=== PATIENT | female | born 1945 | race Caucasian/White ===

== ENCOUNTER → 2017-09-25 08:38 | Outpatient (CLI) | payer MEDICARE, SELFPAY ==
--- NOTE | 2017-09-25 09:15 | MR_ITS ---
MR hip RT wo con Lost dictation redictated* Ordering Physician: Nicolette Mercado MD Patient Age: 72 years: Female HISTORY: ITS.REASON: PAIN IN RIGHT HIP Right hip pain. Right groin pain radiates right flank pain for one month. TECHNIQUE: Multiplanar multisequence imaging 1.5 Jaye MR COMPARISON :Right hip 11/06/2013 and lumbar spine series October 2013 FINDINGS There are significant arthritic changes at the right hip.. Joint Space narrowing and prominent hypertrophic lipping about the margins of acetabulum as well as at the base of the femoral head.. The coronal images nicely demonstrate a prominent nearly 9 mm marginal I hypertrophic spurring extending inferiorly from base of right femoral head. Coronal image 12 and sagittal image 16. However on the sagittal However is we continue more laterally on the sagittal images 13-12 there is additional area focal spur formation measuring up to 9 mm AP X a towards anterior capsule. This is near the base the femoral neck. Was not evident on plain film from 2013. This appears to impinge upon the anterior capsule in this region. I suggest follow-up plain films right hip to correlate to include AP, frog-leg and crosstable lateral view in attempt to characterize the spurring on plain film. Also likely a CT may be of benefit to better evaluate these osseous elements and progressive marginal osteophytes. . There is actually an area of osseous protuberance at the inferior femoral neck also seen on sagittal image 15 Lobe posteriorly there are some generous marginal osteophytes but these appear typical echogenicity generous hypertrophic lipping at the margin of acetabulum. The anterior acetabular labrum as suspected degenerated and diminutive. There is a moderate joint effusion most evident along the inferior aspect of the right hip and subcapital region. It is difficult to exclude a small loose body within surrounded by joint fluid, at inferior aspect of the joint on coronal image 15, 16 Increased signal along the anterior aspect roof of the acetabulum which is most evident anteriorly,, with mild diffuse increased signal along the anterior aspect of worn appearing femoral head. I suspect this reflects reactive bone signal from the degenerative changes and unlikely a reflection of avascular necrosis. I believe there are some degenerative subchondral cystic changes here based on sagittal image set, 21, 20 There is additional nearly 10 mm high signal focus along superior medial right right femoral head, at 2 o'clock position which most likely reflects a degenerative subchondral cyst given overall appearance. Best seen sagittal image 19.. It. . The trochanteric region appears intact. Upper normal fluid overlying the greater trochanter likely normal but could conceivably reflect a scant minor trochanteric bursitis. Unimpressive -- Prominent Metallic signal artifact from the left femoral head region likely reflects a interval ORIF or prosthesis here.- Which was not evident on 2014 plain films. This prominent metallic artifact, limits imaging at the left hip & adjacent pelvis only limited views of the sacrum included. These show upper normal signal and sacrum but no definitive insufficiency fracture and be identified. The bladder is distended.. Most likely stool filled bowel loops at pelvis images of both bases limited. Previous plain films suggested large calcified fibroids at the pelvis, and pelvic basin. These would appear to account for some of the densities seen here today as well IMPRESSION: Pronounced Degenerative Arthritic changes Right Hip. Joint space narrowing most evident at superior lateral joint. Increased signal at acetabulum and anterior femoral head likely reflect reactive bone changes. There are are subchondral cysts also seen on both sides
--- NOTE | 2017-09-25 09:15 | MR_ITS ---
MR knee LT wo con Ordering Physician: Nicolette Mercado MD Patient Age: 72 years: Female HISTORY: ITS.REASON: LEFT KNEE PAIN Left knee pain for one month. No reported injury TECHNIQUEMultiplanar multisequence imaging on 1.5 T MR. COMPARISON :No plain films left knee available for comparison. FINDINGS ACL thin but I believe intact. PCL intact. . Medial and lateral collateral ligaments appear adequate in intact. Degenerative Arthritic Changes most evident at medial compartment, followed by patellofemoral joint. Medial Compartment Prominent OSTEOARTHRITIS.:: Joint space narrowing new compartment with. Marginal marginal osteophytes most evident about medial compartment. Significant chondral thinning and loss on both sides the medial compartment Appears to be developing focal osteochondral defect medial tibial plateau in this region.-, With more pronounced chondral thinning with associated thinning of cortex, no disruption nor offset of cortex. (No osteochondritis dissecans as of yet).. However beneath this focal focal 8 mm area density very extensive diffuse abnormal signal surrounding this area and throughout the anterior aspect of the medial tibial plateau,. This extensive abnormal bone signal extending downward to the metaphysis & extending beneath spines. Appearance reflects underlying bone edema and and likely extensive reactive bone. Has there been recent been recent trauma or repetitive stress.... The bone signal changes throughout the proximal anterior tibia on the most pronounced and prominent findings on today's scant.. Warrants orthopedic consult Also note small small intra-articular osteochondral irregularity or or small developing subchondral cyst is seen at the medial margin of the medial femoral condyle. This 4 mm size and depth but no surrounding edema or bone signal abnormalities.. It appears to be quite localized. Medial Meniscal Tear , most suspected involving body of medial meniscus , with slight irregular superior surface noted.. Also Question possible tear extending to the peripheral base of medial meniscus on coronal image. May also be some fibrillation at posterior horn & posterior body junction . The Generous intrameniscal degenerative signal... Medial displacement of medial meniscus from the narrowed medial compartment, accompanying moderate marginal osteophytes here.. Lateral compartment well-maintained. Cartilage here well-maintained.. Mild to moderate marginal osteophytes Lateral Meniscus remains overall intact. Only question some slight increased signal at the posterior meniscal root of lateral meniscus. This area should be inspected if arthroscopy performed. . Patellofemoral joint. Slight medial offset of patella... Chondral scuffing & thinning seen at posterior patella, --- most evident at medial facet marginal and towards the inferior patella.. Marginal Osteophytes most evident about the medial aspect of patellofemoral joint but also seen about superior and inferior margin of patella. Moderate joint effusion: Also note hypertrophic spurring at both the posterior tibial spine & less evident anterior tibial spine. Spurring at the posterior tibial spine nearly impinges upon the PCL. Minimal fluid is along posterior aspect tibial fibular joint.. IMPRESSION. 1. Osteoarthritis & findings most pronounced at medial compartment. : ... Chondral thinning throughout medial compartment with developing osteochondral irregularity medial tibial plateau. Associated prominent extensive bone edema/reactive bone signal abnormalities beneath this focus, and in seen extending throughout tibia, beneath medial tibial plateau, anterior aspect.... ..... Medial meniscal tears/ meniscal irregularity irregularities, most evident at body the medial
== END ==
PROVIDERS: Family Provider Nurse Practitioner Family; PCP Family Medicine; Visit Provider Family Medicine
DX: M25.562 Pain in left knee (principal); M25.551 Pain in right hip
CPT/HCPCS: 73721

== ENCOUNTER → 2018-05-05 10:17 | Outpatient (CLI) | payer MEDICARE, SELFPAY ==
--- NOTE | 2018-05-05 10:25 | XR_ITS ---
XR chest 2V HISTORY: ITS.REASON: HTN, EX SMOKER ORDERING PHYSICIAN: Nicolette Mercado MD PATIENT AGE: 72 years Technique: PA lateral chest COMPARISON: 10/24/2015. FINDINGS: Lungs are well expanded and clear with no active disease.. No infiltrate no suspicious nodule. No pleural effusion or findings. The cardiomediastinal silhouette. Mild dextroscoliosis upper lumbar spine. And pulmonary vascularity are within normal limits. No acute bony abnormalities. IMPRESSION:...... Lungs clear. Stable chest with Nothing definite acute.
== END ==
PROVIDERS: PCP Family Medicine; Visit Provider Family Medicine
DX: Z01.818 Encounter for other preprocedural examination (principal)
CPT/HCPCS: 71046

== ENCOUNTER → 2018-09-21 12:40 | Outpatient (CLI) | payer MEDICARE, SELFPAY ==
--- NOTE | 2018-09-21 12:44 | XR_ITS ---
XR hip RT 2-3V w/pelvis HISTORY: ITS.REASON: RT HIP PAIN ORDERING PHYSICIAN: Nicolette Mercado MD PATIENT AGE: 73 years COMPARISON: 11/16/2013 FINDINGS: There has been a bipolar hip prosthesis placed the left. Moderate to severe osteoarthritic changes are present involving the right hip with decrease in the joint space, and osteosclerosis with subchondral cystic changes and marginal osteophytes. Small lucency is present along the humeral head laterally on the abduction view of chondral cyst. No fracture or dislocation. Incidental note made of 3 uterine fibroids the largest measuring 5.6 cm. IMPRESSION: Moderate to severe osteoarthritis of the right hip as described above with subchondral cyst of the femoral head and marginal osteophytes. This has progressed since 11/16/2013 radiograph. Uterine fibroids
== END ==
PROVIDERS: PCP Family Medicine; Visit Provider Family Medicine
DX: M25.551 Pain in right hip (principal)
CPT/HCPCS: 73502

== ENCOUNTER → 2019-10-04 12:08 | Outpatient (CLI) | payer MEDICARE, SELFPAY ==
--- NOTE | 2019-10-04 12:12 | XR_ITS ---
PROCEDURE: XR CHEST 2V CLINICAL HISTORY: HTN, PREOP COMPARISON: CXR CHEST(2 VIEWS-NOT PORTABLE) from 05/10/2014 CXR CHEST(2 VIEWS-NOT PORTABLE) from 10/24/2015 CXR2V XR chest 2V from 05/05/2018 FINDINGS: The cardiomediastinal silhouette and pulmonary vascularity are within normal limits. The lungs are clear without infiltrates, suspicious nodules, or pleural effusions. No acute bony abnormalities. IMPRESSION: No acute findings. Dictated by: Naman Barclay MD 10/04/2019 13:18 Electronically signed by Naman Barclay MD in [place] 10/04/2019 13:18
== END ==
PROVIDERS: PCP Family Medicine; Visit Provider Family Medicine
DX: Z01.818 Encounter for other preprocedural examination (principal)
CPT/HCPCS: 71046

== ENCOUNTER 2021-08-19 15:31 | Emergency (ER) | payer MEDICARE, OTHER, SELFPAY ==
[2021-08-19 15:40] VITALS: BP 114/82; PULSE 83; RESP 18; TEMP 36.7; O2SAT 96; BMI 29.1
[2021-08-19 15:45] VITALS: BP 114/82; PULSE 83; RESP 18; TEMP 36.7; O2SAT 96; BMI 29.1
--- NOTE | 2021-08-19 15:47 | XR_ITS ---
PROCEDURE INFORMATION: Exam: XR Right Hand Exam date and time: 08/19/2021 3:47 PM Age: 76 years old Clinical indication: Injury or trauma; Fall; Blunt trauma (contusions or hematomas); Hand; Right TECHNIQUE: Imaging protocol: XR Right hand. Views: 3 or more views. COMPARISON: CR XR WRIST RT MIN 3V 08/19/2021 4:36 PM FINDINGS: Bones/joints: Severe osteoarthritis of the 1st carpometacarpal joint and distal interphalangeal joints, as manifested by almost complete loss of the joint space, large osteophyte formation, subchondral cyst formation, and subchondral sclerosis. Moderate osteoarthritis of the proximal interphalangeal joints, as manifested by moderately decreased joint space, moderate osteophyte formation, and subchondral sclerosis. Redemonstration of a dorsally angulated, impacted, and comminuted fracture of the distal radial metaphysis. Redemonstration of a ulnar styloid avulsion fracture. No other acutely displaced fractures are identified. There is no evidence of joint dislocation. No aggressive osseous lesions. Soft tissues: There is soft tissue swelling. IMPRESSION: 1. Redemonstration of a Colles'fracture and a associated ulnar styloid avulsion fracture. 2. Severe osteoarthritis of the 1st carpometacarpal joint and distal interphalangeal joints. 3. Moderate osteoarthritis of the proximal interphalangeal joints.
--- NOTE | 2021-08-19 15:47 | XR_ITS ---
PROCEDURE INFORMATION: Exam: XR Right Forearm Exam date and time: 08/19/2021 3:47 PM Age: 76 years old Clinical indication: Injury or trauma; Fall; Blunt trauma (contusions or hematomas); Arm, lower; Right TECHNIQUE: Imaging protocol: XR Right forearm. Views: 2 views. COMPARISON: CR XR HAND RT MIN 3V 08/19/2021 4:38 PM FINDINGS: Bones/joints: Comminuted, impacted, and dorsally angulated fracture of the distal radial metaphysis. Ulnar styloid avulsion fracture. Severe osteoarthritis of the 1st carpometacarpal joint, as manifested by almost complete loss of the joint space, large osteophyte formation, subchondral cyst formation, and subchondral sclerosis. No other acutely displaced fractures are identified. There is no evidence of joint dislocation. No aggressive osseous lesions. Soft tissues: There is soft tissue swelling. IMPRESSION: 1. Redemonstration of a Colles'fracture. 2. Redemonstration of a avulsion fracture of the ulnar styloid.
--- NOTE | 2021-08-19 15:47 | XR_ITS ---
PROCEDURE INFORMATION: Exam: XR Right Wrist Exam date and time: 08/19/2021 3:47 PM Age: 76 years old Clinical indication: Injury or trauma; Fall; Blunt trauma (contusions or hematomas); Wrist; Right TECHNIQUE: Imaging protocol: XR Right wrist. Views: 3 or more views. COMPARISON: No relevant prior studies available. FINDINGS: Bones/joints: Comminuted, impacted, and dorsally angulated fracture of the distal radial metaphysis. Ulnar styloid avulsion fracture. Severe osteoarthritis of the 1st carpometacarpal joint, as manifested by almost complete loss of the joint space, large osteophyte formation, subchondral cyst formation, and subchondral sclerosis. No other acutely displaced fractures are identified. There is no evidence of joint dislocation. No aggressive osseous lesions. Soft tissues: There is soft tissue swelling. IMPRESSION: 1. Colles'fracture. 2. Avulsion fracture of the ulnar styloid.
--- NOTE | 2021-08-19 16:21 | HMH.EDUTC ---
[facility] Disposition Clinical Impression: Wrist fracture, closed Qualifiers: Encounter type: initial encounter Laterality: right Qualified Code(s): S62.101A - Fracture of unspecified carpal bone, right wrist, initial encounter for closed fracture Disposition: Home, Self-Care Condition on Discharge: Good Instructions: Wrist Fracture, DI for Wrist Fracture, How To Perform RICE (Rest, Ice, Compress, Elevate) Additional Instructions: *RICE, Rest the extremity, Ice 15-20 minutes 3-4 times daily, Compress- wear the yara wrap as discussed as much as possible to help reduce swelling and pain, Elevate the extremity when at rest *Short arm splint is for support and help control swelling. Be sure that is not to tight but not to loose either *Elevate when resting *Ibuprofen 600 every 6-8 hours as needed for pain an inflammation. If need something more can take Tylenol in between doses of Ibuprofen to help Immediately follow up with your family doctor for new or worsening of symptoms, or no noticeable improvement over the next 3-[address] Lu's office in the morning for appointment Return if needed Prescriptions: Ibuprofen [Ibuprofen 600mg Tablet] 600 mg PO Q8HP PRN #20 tab PRN Reason: Moderate Pain Transmission Status: Received by [id number] Referrals: Nicolette Mercado MD [Primary Care Provider] - As needed Mauri Lu MD [Staff Physician] - (Call office in the morning ) Time of Disposition: 17:04 Medical Decision Making - Michel Inquiry Pt receiving controlled substance: No Michel was queried for this patient: No Vital Signs: 08/19/21 15:40 08/19/21 15:45 Temperature 98.0 F 98.0 F Temperature Source Oral Oral Pulse Rate [Left Brachial] 83 83 Respiratory Rate 18 18 Blood Pressure [Left Arm] 114/82 114/82 Blood Pressure Mean [Left Arm] 92 92 Blood Pressure Source [Left Arm] Automatic Cuff Automatic Cuff Blood Pressure Position [Left Arm] Sitting Sitting 02 Sat by Pulse Oximetry 96 96 Oxygen Delivery Method Room Air Room Air - Radiology Data #1 Image(s): Forearm Image Reviewed: Yes I reviewed the patient's radiology image IMPRESSION: 1. Redemonstration of a Colles'fracture. 2. Redemonstration of a avulsion fracture of the ulnar styloid. #2 Image(s): Wrist Image Reviewed: Yes I reviewed the patient's radiology image, Yes I have reviewed radiologist's interpretation IMPRESSION: 1. Colles'fracture. 2. Avulsion fracture of the ulnar styloid. #3 Image(s): Hand Image Reviewed: Yes I reviewed the patient's radiology image, Yes I have reviewed radiologist's interpretation IMPRESSION: 1. Redemonstration of a Colles'fracture and a associated ulnar styloid avulsion fracture. 2. Severe osteoarthritis of the 1st carpometacarpal joint and distal interphalangeal joints. 3. Moderate osteoarthritis of the proximal interphalangeal joints. - Physician Consults Physician Consulted: Dr Lu Time: 16:59 Reason -: Orthopedic Eval/Care Comment/Response: Spoke with Dr Lu and he viewed xray and agreed advised to place in short arm splint RICE and have her call office in the morning for appointment [facility] HPI - General Stated complaint: AO fall 1530 injured R wrist Time Seen by Provider: 08/19/21 16:21 Mode of Arrival: Ambulatory Source of Information: Patient Limitations: No Limitations Description of Symptoms (Recalled from Triage Doc. by RN): PATIENT STATES SHE RAN INTO A [employer] AND IT STARTED ROLLING, CAUSING HER TO FALL ON RIGHT ARM. C/O PAIN AND SWELLING TO RIGHT WRIST AND FOREARM. HEENT Symptoms (Recalled from RN notes): No Resp Symptoms (Recalled from RN notes): No Skin Symptoms (Recalled from RN notes): No MS Symptoms (Recalled from RN notes): Yes Functional Status (Recalled from RN notes): WNL - History of Present Illness Provider Complaint: Patient states that she was at home and tripped over vaccum duct cleaner and fell and landed on her right hand/wrist States t
[2021-08-19 17:25] VITALS: BP 114/82; PULSE 83; RESP 18; TEMP 36.7; O2SAT 96
== END 2021-08-19 17:29 | disposition home or self-care (01) ==
PROVIDERS: Emergency Provider Nurse Practitioner; PCP Family Medicine
DX: S62.101A Fracture of unspecified carpal bone, right wrist, initial encounter for closed fracture (principal); W01.0XXA Fall on same level from slipping, tripping and stumbling without subsequent striking against object, initial encounter; Y92.019 Unspecified place in single-family (private) house as the place of occurrence of the external cause
CPT/HCPCS: 29125; G0463; 73090; 73110; 73130; 99203

== ENCOUNTER → 2021-08-21 10:46 | Outpatient (CLI) | payer MEDICARE, OTHER, SELFPAY ==
--- NOTE | 2021-08-21 | ECG_ITS ---
APPROVED REPORT Exam: Resting ECG HR:60 bpm ECG Measurements Heart Rate 60 AXES VA 166 P 69 QRSd 106 QRS -32 QT 415 T 24 QTc 415 Conclusion SINUS RHYTHM LEFT AXIS DEVIATION [QRS AXIS < -30] INCOMPLETE RIGHT BUNDLE BRANCH BLOCK [90+ ms QRS DURATION, TERMINAL R IN V1/V2, 40+ ms S IN I/aVL/V4/V5/V6] NONSPECIFIC ST & T-WAVE ABNORMALITY ABNORMAL ECG UNCONFIRMED REPORT Electronically signed by : Eros Dixon MD 08/22/2021 19:31:44
--- NOTE | 2021-08-21 10:54 | XR_ITS ---
FINAL REPORT CLINICAL HISTORY: HIGH BLOOD PRESSURE,PREOPERATIVE COMPARISON: 05/05/2019 FINDINGS: TWO VIEWS OF THE CHEST The heart is normal in size. The mediastinum is unremarkable. There is mild scarring in the right lung. The lungs are otherwise clear. There is no pneumothorax. IMPRESSION: No acute cardiopulmonary process. Reviewed, Interpreted and Dictated by Beni Rain III, MD Transcribed by Arlene Escobar Authenticated by Beni Rain III, MD on 08/21/2021 12:38:03 PM [facility]
[2021-08-21 11:29] LABS: Basophils # 0.1 K/mm3 (0-0.2); Basophils % 1.3 % (0.1-2.0); Eosinophils # 0.3 K/mm3 (0.0-0.4); Eosinophils % 3.4 % (0.1-12.0); Hematocrit 44.7 % (37.0-47.0); Hemoglobin 14.3 g/dL (12.2-16.2); Lymphocytes # 1.8 K/mm3 (0.7-4.5); Lymphocytes % 22.3 % (10-50); Mean Corpuscular HGB Conc 32.1 g/dL (31.8-35.4); Mean Corpuscular Hemoglobin 30.2 pg (27.0-31.2); Mean Corpuscular Volume 94.1 fl (81-99); Mean Platelet Volume 7.6 fl (7.4-10.4); Monocytes # 0.3 K/mm3 (0.1-1.0); Neutrophils # 5.6 K/mm3 (1.8-7.8); Platelet Count 277 K/mm3 (142-424); Red Blood Count 4.74 M/mm3 (4.20-5.40); Red Cell Distribution Width 14.1 % (11.5-17.5); White Blood Count 8.1 K/mm3 (4.8-10.8)
[2021-08-21 11:58] LABS: Chloride 106 mmol/L (98-107); Potassium 4.2 mmoL/L (3.5-5.1); Sodium 137 mmol/L (136-145)
[2021-08-21 12:01] LABS: Alanine Aminotransferase 16 U/L (12-78); Albumin Level 4.5 g/dl (3.5-5.0); Albumin/Globulin Ratio 1.8 (1.1-1.8); Alkaline Phosphatase 97 U/L (38-126); Anion Gap 10.2 mEq/L (5-15); Aspartate Amino Transferase 23 U/L (14-36); Bilirubin,Total 0.6 mg/dl (0.2-1.3); Blood Urea Nitrogen 15 mg/dl (7-17); Calcium 9.2 mg/dl (8.4-10.2); Carbon Dioxide 25 mmol/L (22.0-30.0); Estimated Glomerular Filt Rate 82 ml/min (>60); GFR (African American) 99 ML/MIN (>60); Globulin 2.5 g/dL (1.3-3.2); Glucose 96 mg/dl (74-100)
== END ==
PROVIDERS: PCP Family Medicine; Visit Provider Orthopaedic Surgery
DX: Z01.818 Encounter for other preprocedural examination (principal); S52.501A Unspecified fracture of the lower end of right radius, initial encounter for closed fracture; S69.91XA Unspecified injury of right wrist, hand and finger(s), initial encounter
CPT/HCPCS: 36415; 71046; 80053; 85025; 93005

== ENCOUNTER → 2021-08-24 10:41 | Outpatient (CLI) | payer MEDICARE, OTHER, SELFPAY | PROVIDERS: PCP Family Medicine; Visit Provider Orthopaedic Surgery | DX: Z01.812 Encounter for preprocedural laboratory examination (principal); Z11.52 Encounter for screening for COVID-19; S52.501A Unspecified fracture of the lower end of right radius, initial encounter for closed fracture | CPT/HCPCS: C9803; U0003; U0005 ==

== ENCOUNTER → 2021-08-26 07:04 | Day surgery (SDC) | payer MEDICARE, OTHER, SELFPAY ==
[2021-08-22 09:43] VITALS: BMI 30.5
[2021-08-26] VITALS (9 sets, daily range): BP systolic 141–162; BP diastolic 63–95; PULSE 62–81; RESP 16–18; TEMP 36.4–36.6; O2SAT 94–97
--- NOTE | 2021-08-26 07:37 | P.PN_ITS ---
[facility] Anesthesia Checklist - Patient Identification Patient Identification: Arm Band - Structural Data Admitted From: Home Planned Operative Procedure/s: ORIF distal radius Consent for Planned Operative Procedure(s) Verified: Yes - NPO Status Verified Time NPO: 00:00 - Airway Assessment C-Spine Mobility Assessed: Yes TMJ Mobility Assessed: Yes Dentition: Dentures-good fit - Neurological Assessment Level of Consciousness: Awake Hx Seizures: No Numbness or tingling in extremities: No - Anesthesia Plan Anesthesia Risk discussed: Yes Anesthesia Plan: Verified ASA Class: II Anesthesia Type: General w/block [facility] History I have reviewed the patient's past medical history: Yes Medical History: Reports:: Hypertension Denies:: Cancer, Diabetes Mellitus Type 1, Diabetes Mellitus Type 2, Internal Pacemaker, MRSA *Have you ever received a pneumonia vaccine?: Yes *Have you received a flu vaccine this season?: Yes Anesthesia experience/problems:: None Laterality Cases: Bilateral: Arthroscopy Hip, Arthroscopy Knee, Cataract, Other Other Surgeries: No: Pacemaker Amputation: No Fractures: Yes - *Social History Last grade of school completed: High school graduate Smoking Status: Never smoker Alcohol Intake: never Substance Use Type: denies use *Occupational Status:: retired Housing: house Household Members: spouse *Travel in the last 8 weeks: None Family Hx:: Cancer, Heart Attack
--- NOTE | 2021-08-26 11:14 | XR_ITS ---
FINAL REPORT CLINICAL HISTORY: ORIF right distal radius surgery pics -- done with C-arm for surgery fluoro time:1:08 FINDINGS: Fluoroscopic imaging was obtained for ORIF of the distal right radius. 1.8 minutes of fluoroscopy time was reported. IMPRESSION: Fluoroscopy provided for ORIF. Reviewed, Interpreted and Dictated by Beni Rain III, MD Transcribed by Alba Enriquez Authenticated by Beni Rain III, MD on 08/26/2021 02:37:24 PM [facility]
--- NOTE | 2021-08-26 11:43 | HMH.ANESI ---
[facility] Anesthesia Record Part I Intake, IV Amount: 700 Estimated blood loss (mL): 5 Urine output (mL): 0 Blood Pressure: 141/75 SaO2: 94 Pulse Rate: 79 Respiratory Rate: 16 Temperature: 97.9 F Patient is:: Drowsy, Oral/Nasal airway Stable to PACU at:: 11:40
--- NOTE | 2021-08-26 12:39 | HMH.OPNOTE ---
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 Evaluation including x-rays of the right wrist showed a closed, comminuted, and displaced fracture of the right distal radius. Following evaluation in the office and discussion with the patient and her daughter about the management options, including both nonsurgical and surgical, patient elected to proceed with surgical remediation. Please refer to my office note for full details. Operative findings:: Displaced, comminuted and unstable fracture of the right distal radius as noted on the preoperative x-rays. Bone quality is good. Operative note:: After appropriate workup, the patient is brought to the hospital for surgery. On the day of surgery, I met the patient in the preoperative area and again discussed the details of the procedure, risks, benefits, alternatives, and the expected outcomes. The complications discussed include but are not limited to infection, bleeding, injury to nerves, tendons and blood vessels, incisional scar (cosmesis), DVT/PE, malunion, nonunion/delayed union, loss of position, re-fracture, wrist/finger stiffness, CRPS (complex regional pain syndrome- pain, sensory and temperature changes, swelling and stiffness), painful/prominent hardware, loss of fixation/hardware failure, incomplete relief of pain, incomplete return of function, posttraumatic arthritis and likely need for further surgery in future and also the risks of anesthesia including heart attack, stroke, and . I have also explained how additional surgery may be required if there are any complications or the fracture fails to heal. We have also discussed the postoperative pain management, recovery and rehabilitation, immobilization required, the likely need for physical therapy, the possibility of stiffness, chronic pain and we've also discussed the option of nonsurgical treatment. Patient expressed a full understanding and wished to proceed with surgery as planned. The operative site/side was marked and initialed by me. Patient understood the risks, agreed to proceed with surgery and no guarantees or assurances were given or implied. Patient was brought to the operating room and placed supine on the table. The right upper extremity was placed over an arm table. All the bony prominences were well padded. A general anesthesia was administered by the zipper setter chainstitch. Prior to that patient also received a supraclavicular nerve block in the pre-anesthetic area. A well-padded tourniquet cuff was applied over the right upper arm. The right upper extremity was prepped and draped in the usual sterile fashion. A preprocedure timeout was performed as per hospital protocol. Administration of prophylactic IV antibiotics (2 g of IV Ancef) was confirmed prior to starting the procedure. The skin incision was marked over the distal forearm anteriorly for the extended FCR volar approach to distal radius. Limb was exsanguinated with Esmarch bandage and tourniquet was inflated to 250 mmHg. Please see the nursing notes for the total tourniquet time. Skin incision was made over the distal radius for an extended FCR anterior approach. The incision was deepened through the subcutaneous tissue and the FCR tendon was identified. The FCR sheath was opened, and the tendon retracted medially. The deeper dissection was carried through the bed of the FCR tendon to expose the FP
[2021-08-29 08:04] VITALS: BP 151/83; PULSE 78; TEMP 36.4
--- NOTE | 2021-08-29 08:04 | HMH.ANESII ---
[facility] Anesthesia Record Part II Discharge Time: 12:10 Destination: Surgical Day Care (OP Surgery) PACU nurse assessment reviewed?: Yes Patient Condition:: Good Anesthesia Complications:: None Swallowing reflex intact?: Yes Cyanosis?: No Blood Pressure: 151/83 Pulse Rate: 78 Temperature: 97.5 F Mental Status: Alert & Oriented Pain level:: 0 Nausea and/or vomitting:: None Intake, IV Amount: 0
== END ==
PROVIDERS: PCP Family Medicine; Visit Provider Orthopaedic Surgery
PROC: (CPT 25515; principal; 2021-08-26 09:00)
DX: S52.531A Colles' fracture of right radius, initial encounter for closed fracture (principal); S52.614A Nondisplaced fracture of right ulna styloid process, initial encounter for closed fracture; W01.0XXA Fall on same level from slipping, tripping and stumbling without subsequent striking against object, initial encounter; Y93.E5 Activity, floor mopping and cleaning; Y92.019 Unspecified place in single-family (private) house as the place of occurrence of the external cause
CPT/HCPCS: 25608; 73100; 76000; 96374; C1713; C1769; C1776; J2405

== ENCOUNTER → 2021-09-05 08:22 | Outpatient (CLI) | payer MEDICARE, OTHER, SELFPAY ==
--- NOTE | 2021-09-05 08:26 | XR_ITS ---
FINAL REPORT CLINICAL HISTORY: s/p distal radius fracture sx COMPARISON: 08/01/2021 FINDINGS: RIGHT WRIST Three views demonstrate interval postoperative changes of ORIF for a distal radial fracture. Screw plate and multiple screws are present. There is improvement in the dorsal displacement and angulation. There is a stable ulnar styloid process fracture. Mild and moderate degenerative changes are present. IMPRESSION: Postsurgical changes as detailed above. Stable ulnar styloid process fracture. Reviewed, Interpreted and Dictated by Beni Rain III, MD Transcribed by Arlene Escobar Authenticated by Beni Rain III, MD on 09/05/2021 09:18:24 AM [facility]
== END ==
PROVIDERS: PCP Family Medicine; Visit Provider Orthopaedic Surgery
DX: S62.101A Fracture of unspecified carpal bone, right wrist, initial encounter for closed fracture (principal)
CPT/HCPCS: 73110

== ENCOUNTER → 2021-09-19 09:30 | Outpatient (CLI) | payer MEDICARE, OTHER, SELFPAY ==
--- NOTE | 2021-09-19 09:40 | XR_ITS ---
FINAL REPORT CLINICAL HISTORY: s/p ORIF rt wrist 08/26/2021 COMPARISON: 09/05/2021 FINDINGS: RIGHT WRIST Three views demonstrate an ORIF of a distal radial fracture. Fracture line is still visible. There is an ulnar styloid process fracture with increased distal displacement of the distal fracture fragment. Moderate degenerative changes are seen involving the radial aspect of the wrist. IMPRESSION: Fractures as above. Reviewed, Interpreted and Dictated by Beni Rain III, MD Transcribed by Arlene Escobar Authenticated by Beni Rain III, MD on 09/19/2021 10:35:08 AM [facility]
== END ==
PROVIDERS: PCP Family Medicine; Visit Provider Orthopaedic Surgery
DX: S62.101A Fracture of unspecified carpal bone, right wrist, initial encounter for closed fracture (principal)
CPT/HCPCS: 73110

== ENCOUNTER 2021-09-19 10:55 | Outpatient (RCR) | payer MEDICARE, OTHER, SELFPAY | END 2021-09-19 11:54 | disposition home or self-care (01) | LOC: OT 10:55 | PROVIDERS: Visit Provider Orthopaedic Surgery | DX: S62.101D Fracture of unspecified carpal bone, right wrist, subsequent encounter for fracture with routine healing (principal) | CPT/HCPCS: 97763 ==

== ENCOUNTER → 2021-09-26 09:03 | Outpatient (CLI) | payer MEDICARE, OTHER, SELFPAY ==
--- NOTE | 2021-09-26 09:07 | XR_ITS ---
FINAL REPORT TECHNIQUE: Bone densitometry calculations of the lumbar spine and left hip were obtained. CLINICAL HISTORY: . h/o broken rt forearm evaluate for osteoporosis pt has juan hip replacement FINDINGS: Using L1-4, the bone mineral density of the spine is 1.064 g/cm2, corresponding to T-score of 0.2. These values may be falsely elevated secondary to hypertrophic change. Using the distal 1/3 of the left forearm, the bone mineral density is 0.528 g/cm2, corresponding to a T-score of -2.8. IMPRESSION: Osteoporosis: Lowest T-score is at or below -2.5. This patient's T-score meets the World Health Organization criteria for osteoporosis. Reviewed, Interpreted and Dictated by Beni Rain III, MD Transcribed by Yaneli Hester Authenticated by Beni Rain III, MD on 09/26/2021 01:06:57 PM [facility]
== END ==
PROVIDERS: PCP Family Medicine; Visit Provider Orthopaedic Surgery
DX: M81.0 Age-related osteoporosis without current pathological fracture (principal)
CPT/HCPCS: 77080

== ENCOUNTER 2021-10-11 11:00 | Outpatient (RCR) | payer MEDICARE, OTHER, SELFPAY ==
--- NOTE | 2021-09-24 15:50 | HMH.OTOPEV ---
OT Inpatient Evaluation Rehab OT Outpatient Eval Start: 09/24/21 15:33 Freq: Status: Active Protocol: Document 09/24/21 15:33 RMARSHALL (Rec: 09/24/21 15:50 [id number] Electronically Signed By Hardeep Nesbitt OT 09/24/21 15:33 Outpatient Therapy Subjective History Subjective History Pt is a 76 year old female who reports to therapy for initial evaluation to right wrist. Pt reports she fell while vacuuming her house resulting in a right wrist fx. Pt required a R wrist ORIF on 08/26/21. Pt currently presents with a pre-deidra wrist cock up brace to right wrist. She appears to have minimal swelling in right hand and wrist. Pt is right hand dominant. Pt explains she was not able to make a full fist at right hand prior to wrist fx due to arthritis. Pt does demonstrate with minimal decreased AROM and strength at right wrist. Pt will continue to be seen twice a week in order to address deficits. STG R triage rn strength: 33 lbs LTG R triage rn strength: 50 lbs Chief Complaint Pain,Stiff,Weakness,Decreased Ambulance Attendant Strength Symptom Type Throb,Dull Symptoms Relieved By Rest/Positioning Symptoms Aggravated By Physical Activity,Lifting Prior Functional Limitations None Current Functional Limitations Reaching,Lifting,Housework, Sleeping,Recreation Activity Symptom Description Intermittent,Activity Dependent Level of pain today (0-10) 0 Pain scale - at its best (0-10) 0 Pain scale - at its worst (0-10) 1 Wrist/Hand Eval Wrist Range of Motion Right Wrist Extension Active Range of Motion ( 42 degrees degrees) Wrist Flexion Active Range of Motion ( 45 degrees degrees) Wrist Radial Deviation Active Range of 18 degrees Motion (degrees) Wrist Ulnar Deviation Active Range of 25 degrees Motion (degrees) Forearm Supination Active Range of 80 degrees Motion (degrees) Forearm Pronation Active Range of Motion 80 degrees (degrees) Wris
== END 2021-10-11 11:05 | disposition home or self-care (01) ==
LOC: OT 11:00
PROVIDERS: PCP Family Medicine; Visit Provider Orthopaedic Surgery
DX: S52.531D Colles' fracture of right radius, subsequent encounter for closed fracture with routine healing (principal); S52.614D Nondisplaced fracture of right ulna styloid process, subsequent encounter for closed fracture with routine healing
CPT/HCPCS: 97010; 97014; 97035; 97110; 97140; 97166; G0283

== ENCOUNTER → 2021-10-30 10:34 | Outpatient (CLI) | payer MEDICARE, OTHER, SELFPAY ==
--- NOTE | 2021-10-30 10:44 | XR_ITS ---
FINAL REPORT CLINICAL HISTORY: orif wrist COMPARISON: September 19, 2021 FINDINGS: 3 views of the right wrist were obtained. There is a sideplate and screws securing a fracture of the distal radial metaphysis. A well corticated os ossific density distal to the ulna is consistent with an avulsion. There are moderate hypertrophic changes at the basilar joint. IMPRESSION: Postoperative change of the distal radius. Avulsion of the ulnar styloid. Reviewed, Interpreted and Dictated by Ranjeet Prescott MD Transcribed by Wilman Young Authenticated by Ranjeet Prescott MD on 10/30/2021 01:36:[address] [facility]
== END ==
PROVIDERS: PCP Family Medicine; Visit Provider Physician Assistant Surgical
DX: S62.101A Fracture of unspecified carpal bone, right wrist, initial encounter for closed fracture (principal)
CPT/HCPCS: 73110

== ENCOUNTER → 2022-04-09 10:22 | Outpatient (CLI) | payer MEDICARE, OTHER, SELFPAY ==
--- NOTE | 2022-04-09 10:31 | XR_ITS ---
FINAL REPORT TECHNIQUE: 5 views CLINICAL HISTORY: LBP x mos radiating into Rt side, worsened recently. NKT FINDINGS: There is no fracture present. There is 15 degrees of thoracolumbar scoliosis convex to the right. Moderately advanced hypertrophic changes of degenerative disc disease are seen, most evident at L4-5 and L5-S1. There is moderate facet sclerosis. Large calcified structures are seen in the right hemipelvis likely related to calcified fibroids. IMPRESSION: Moderately advanced degenerative changes without acute bony abnormality. Reviewed, Interpreted and Dictated by Ranjeet Prescott MD Transcribed by Alba Enriquez Authenticated and [facility]
== END ==
PROVIDERS: PCP Family Medicine; Visit Provider Family Medicine
DX: M54.50 Low back pain, unspecified (principal)
CPT/HCPCS: 72110

== ENCOUNTER 2022-05-01 20:10 | Emergency (ER) | payer MEDICARE, OTHER, SELFPAY ==
[2022-05-01 20:12] VITALS: BP 161/84; PULSE 81; RESP 16; TEMP 36.5; O2SAT 97; BMI 30.4
[2022-05-01 21:20] VITALS: BP 161/84; PULSE 87; RESP 16; TEMP 36.6; O2SAT 98
== END 2022-05-01 21:25 | disposition left against medical advice (07) ==
PROVIDERS: Emergency Provider Emergency Medicine; PCP Family Medicine
DX: Z53.21 Procedure and treatment not carried out due to patient leaving prior to being seen by health care provider (principal)

== ENCOUNTER → 2022-09-29 08:52 | Outpatient (CLI) | payer MEDICARE, OTHER, SELFPAY ==
--- NOTE | 2022-09-29 08:59 | XR_ITS ---
FINAL REPORT CLINICAL HISTORY: LUMBAGO W/SCIATICA RT SIDE,LOW BACK PAIN COMPARISON: March 2022 FINDINGS: Five views were obtained. There is no acute fracture. There is no malalignment. There is stable dextroscoliosis centered at L1. There are moderate and severe degenerative changes. There are multilevel osteophytes. There has been bilateral hip arthroplasty. There are presumed calcified fibroids. IMPRESSION: Moderate and severe degenerative changes. Reviewed, Interpreted and Dictated by Beni Rain III, MD Transcribed by Wilman Young Authenticated and [facility]
== END ==
PROVIDERS: PCP Nurse Practitioner Family; Visit Provider Nurse Practitioner Family
DX: M54.41 Lumbago with sciatica, right side (principal); G89.29 Other chronic pain
CPT/HCPCS: 72110

== ENCOUNTER → 2022-10-01 14:19 | Outpatient (CLI) | payer MEDICARE, OTHER, SELFPAY ==
--- NOTE | 2022-10-01 | CA_ITS ---
APPROVED REPORT EXAM: Comprehensive 2D, Doppler, and color-flow Echocardiogram Emission Specialist: Lila Oliveros CRT Ht: 5 ft 5 in Wt: 178lbs BSA: 1.88 BP: 176/86 mmHg Indications: Murmur, Hypertension/HDD 2D Dimensions LVOT 1.40 cm (M/F) 1.5-2.5 LA Volume 51.40 mL LA Volume Index 26.60 mL/m2 (M/F) 16-34 M-Mode Dimensions RVDd 2.72 cm (0.9-2.6) LA Diam 3.66 cm (1.9-4.0) LVDd 4.46 cm (3.5-5.7) Ao Diam 3.28 cm (2.0-3.7) LVDs 3.03 cm (3.5-5.7) IVSd 2.08 cm (0.6-1.1) PWd 0.68 cm (0.6-1.1) EF (Teich) 60.30% FS 32.10% EDV (Teich) 90.50 mL TAPSE 1.60 (<1.7) ESV (Teich) 35.90 mL LV Diastology E Decel Time 260.00 (160-240 msec) E/A Ratio 1.10 MED E' 4.40 (< 7 cm/sec) MED A' 8.80 cm/s E'/MED E' Ratio 25.25 (>14) LAT E' 4.90 (<10 cm/sec) LAT A' 11.30 cm/s E/LAT E' Ratio 22.67 (>14) Aortic Valve LVOT Max 175.00 (70-110 cm/s) LVOT VTI 40.18 cm AoV Peak Uli. 384.00 (50-130 cm/s) AI PHT 579.00 ms AO Peak GR. 59.00 mmHg AO Mean GR. 36.30 (<5 mmHg) AO VTI 80.22 (18-25 cm) MARITA (VTI) 0.77 (2.5-4.5 cm2) Mitral Valve MV E Max Uli. 111.00 (40-130 cm/s) MV A Velocity 101.00 (40-130 cm/s) E/A Ratio 1.10 MV Decel. Time 260.00 (160-240 ms) MV PHT 76.00 ms Pulmonary Valve PV Peak Velocity 152.00 (50-150 cm/s) Tricuspid Valve TR P. Velocity 820.00 cm/s RAP Estimate 10.00 mmHg RVSP 279.00 mmHg Left Ventricle Left atrium is moderately enlarged, left ventricle is normal size mild concentric left ventricular hypertrophy, estimated ejection fraction 55% with no regional wall motion abnormality, grade 1 diastolic dysfunction seen without tissue Doppler evidence of raise left atrial pressure. Right Ventricle Right atrium and right ventricular normal size and contractility. Aortic Valve Aortic valve is thickened and calcified with restriction in the leaflet mobility, the mean gradient across aortic valve is 38.6 mmHg, valve area is 1.06 cm???, this represents moderate aortic stenosis, there is mild aortic insufficiency. Mitral Valve Mitral valve has mitral calcification, leaflets are minimally thickened, there is no mitral stenosis, there is mild mitral regurgitation. Tricuspid Valve Tricuspid valve grossly normal, there is mild tricuspid regurgitation, tricuspid regurgitation jet velocity is inadequate for calculation of the right ventricular systolic pressure. Pulmonic Valve Pulmonic valve is poorly visualized. Great Vessels Aortic root is normal size. Inferior vena cava is normal size with normal inspiratory collapse. Pericardium No significant pericardial effusion noted. Conclusion 1. Moderately enlarged left atrium, normal left ventricular size, mild concentric left ventricular hypertrophy, estimated ejection fraction 55% with no regional wall motion abnormality, grade 1 diastolic dysfunction seen without tissue Doppler evidence of raise left atrial pressure. 2. Thickened and calcified aortic valve with mean gradient across aortic valve is 38.6 mmHg, valve area is 1.06 cm??? represents moderate aortic stenosis, there is mild aortic insufficiency. 3. Mild mitral and tricuspid regurgitation. 4. No significant pericardial effusion noted. 5. Inferior vena cava is normal size with normal inspiratory collapse. Electronically signed by : Fabio Francis MD 10/02/2022 06:10:39
--- NOTE | 2022-10-01 15:19 | MM_ITS ---
PROCEDURE INFORMATION: Exam: MG Bilateral Screening 3D Mammography Exam date and time: 10/01/2022 3:12 PM Age: 77 years old Clinical indication: Screening. No family history of breast cancer. . History of benign left needle biopsy. TECHNIQUE: Imaging protocol: Bilateral Screening tomosynthesis and 2D mammography including computer-aided detection (CAD) when performed. COMPARISON: 1. MG DMSB DIGITAL MAMM-SCREEN BILATERAL 04/15/2012 10:56 AM 2. MG DMSB DIGITAL MAMM-SCREEN BILATERAL 05/22/2011 9:55 AM 3. MG DIGMAMMS MAMMOGRAM SCREEN-NIGHT WORKER N/C 03/07/2004 5:02 PM 4. MG DIGMAMMDX MAMMOGRAM DX-NIGHT WORKER N/C 05/25/2002 5:02 PM FINDINGS: MAMMOGRAPHY: Breast composition: There are scattered areas of fibroglandular density. Interval glandular involution. Mass: In the right upper outer quadrant, middle 3rd, 6-7 cm from the nipple, oval, questionable lobulated 0.7 cm mass, possible intramammary lymph node, CC frame 14 and MLO frame 21. In the left inner breast, anterior 3rd, best seen in the CC projection, questionable 0.7 cm oval mass, CC frame 21 and possibly retroareolar MLO frame 40, about 7-11:00, 2 cm from the nipple. Architectural distortion: None. Calcifications: No suspicious calcifications. Asymmetric density: None. Skin thickening: None. Axillary adenopathy: None. Other: Left biopsy clip. IMPRESSION: Patient will be recalled for right sonography for further evaluation of questionable right mass and left diagnostic mammography with spot compression in the CC and MLO projection as well as left sonography for further evaluation of questionable left breast mass. ASSESSMENT: BI-RADS Category 0: Incomplete- Need Additional Imaging Evaluation and/or Prior Mammograms for Comparison
== END ==
PROVIDERS: PCP Family Medicine; Visit Provider Nurse Practitioner Family
DX: R01.1 Cardiac murmur, unspecified (principal); Z12.31 Encounter for screening mammogram for malignant neoplasm of breast
CPT/HCPCS: 77063; 77067; 93306

== ENCOUNTER → 2022-10-10 13:51 | Outpatient (CLI) | payer MEDICARE, SELFPAY ==
--- NOTE | 2022-10-10 13:56 | US_ITS ---
PROCEDURE INFORMATION: Exam: US Right Breast, Complete US Left Breast, Complete MG Left Diagnostic Breast Tomosynthesis Exam date and time: 10/10/2022 1:49 PM Age: 77 years old Clinical indication: Patient recalled on the basis of a screening mammogram for further evaluation; bilateral breast masses TECHNIQUE: Imaging protocol: Complete ultrasound of all four quadrants of the right breast and the retroareolar regions, including ultrasound of the axilla when performed. Complete ultrasound of all four quadrants of the left breast and the retroareolar regions, including ultrasound of the axilla when performed. Left Diagnostic tomosynthesis and 2D mammography including computer-aided detection (CAD) when performed. Unilateral or bilateral exam. COMPARISON: 1. MG MM DIG SCREENING MAMM BI W/CAD 10/01/2022 3:12 PM 2. MG DMSB DIGITAL MAMM-SCREEN BILATERAL 04/15/2012 10:56 AM FINDINGS: MAMMOGRAPHY: Digital diagnostic spot compression views of the anterior left medial breast demonstrates a persistent ovoid mass measuring approximately 0.7 cm in greatest dimension. ULTRASOUND: Sonographic images of both breasts including the retroareolar regions, all 4 quadrants and the axilla demonstrates a partially circumscribed ovoid solid mass in the left 9 o'clock retroareolar region most closely corresponding to the mass on mammography. It measures 0.7 x 0.5 x 0.6 cm in dimension. No other solid or cystic masses are noted in the left breast. Sonographic images of the right 9 o'clock axis 7 cm from the nipple demonstrates a 0.6 cm cyst most closely corresponding to the mass on mammography. No other solid or cystic masses are noted in the right breast. No architectural distortion or acoustical shadowing. No skin thickening or axillary adenopathy. IMPRESSION: 1. Partially circumscribed indeterminate solid mass in the left breast. Ultrasound-guided core biopsy is recommended for further evaluation. 2. Mass in the right lateral breast corresponds to underlying benign cystic change sonographically. ASSESSMENT: BI-RADS Category 4: Suspicious
== END ==
PROVIDERS: PCP Nurse Practitioner Family; Visit Provider Nurse Practitioner Family
DX: R92.8 Other abnormal and inconclusive findings on diagnostic imaging of breast (principal)
CPT/HCPCS: 76641; 77061; 77065; G0279

== ENCOUNTER → 2022-10-20 12:49 | Outpatient (POV) | payer MEDICARE, SELFPAY ==
--- NOTE | 2022-10-20 13:25 | EXP.PAIN.OV ---
HPI Data of Consult Patient: new to practice Consult date: 10/20/22 Requesting Physician: Rosa Palma APRN Primary Care Provider: Krissy Shahid APRN Consult Narrative Reason for consult: Low back pain History of present illness: Ms. Isbell is a 77 year old female who presents today as a new patient. She is a referral from Carlota Shahid's office. Today she rates her pain at a 7 out of 10. Patient states her pain is all in her low back that is been going on over the last year. Patient states that she has had a few falls over that time. She does describe this as an aching, stiff sensation that is worse with increased activity. She states that over the last 2 months it has progressively gotten worse. She does state it interferes with her ability to perform activities of daily living such as cooking and cleaning. She does state her pain is worse with bending twisting and lifting movements. She does state it is primarily along her right side that she notices her pain symptoms. She has had recent x-ray imaging. Patient denies any past history of surgeries. She states that she did have steroid injections in the past given by her primary care doctor. Patient has tried physical therapy in the past that did provide significant relief however once she stopped doing this her pain immediately came back to its baseline. Patient has tried [id number] Tylenol and ibuprofen which she states does ease some of her symptoms. Patient also continues to use ice for temporary relief. Patient denies any chiropractor history. She is not currently on any scheduled medications. Her Michel is [phone]. Its been reviewed and appropriate. CC: Rosa Palma APRN [facility] Disclaimer: The information contained in this section may have been updated after the patient was seen, as this information can be updated by other users. Social History Smoking Status: Never smoker second hand exposure: No alcohol intake: never substance use type: denies use current occupational status: retired Travel in the last 8 weeks: None household members: spouse housing: house current occupational exposures/hazards: No caffeine: Yes Review of Systems Review of Systems Review of systems:: pertinent systems reviewed and negative unless documented below Review of systems (narrative): Review of Systems: General: No recent weight changes, no fever, no sleep disturbances Respiratory: No cough, no shortness of air, no recurring pulmonary infections Cardiovascular/peripheral vascular: No chest pain, no palpitations, no edema, no shortness of breath Gastrointestinal: No new onset incontinence, normal bowel movements reported Genitourinary: No new onset incontinence Musculoskeletal: Low back pain Psychiatric: [Normal mood/affect] Neurological: [Denies weakness in extremities], [denies balance issues] Meds Home Medications and Allergies Home Medications Medication Instructions Recorded Confirmed Type lisinopril 10 mg tablet 10 mg PO DAILY Hypertension 09/21/19 10/30/21 History New Prescriptions to Start Prescriptions: Allergies Allergy/AdvReac Type Severity Reaction Status Date / Time No Known Allergies Allergy Verified 10/30/21 11:01 Objective Narrative: Physical Exam: General: Alert and oriented x3, no acute distress, pleasant and cooperative Lungs: Respirations even and unlabored, symmetrical chest expansion Eyes: PERRL Musculoskeletal: Flexion and extension of lumbar [spine] somewhat guarded secondary to pain, [antalgic gait noted] positive Kemps sign Neurological: Speech clear, no gross sensory deficit Oswestry index of 8/16% Additional findings Additional findings: COMPARISON: March 2022 FINDINGS: Five views were obtained. There is no acute fracture. There is no malalignment.? There is stable dextroscoliosis centered at L1.? There are moderate and severe degenerative changes.? There are multilevel osteo
[2022-10-20 14:23] VITALS: BP 145/86; PULSE 81; RESP 18; O2SAT 97; BMI 29.8
== END ==
PROVIDERS: PCP Nurse Practitioner Family; Visit Provider Nurse Practitioner Family
DX: M51.36 Other intervertebral disc degeneration, lumbar region (principal); M48.061 Spinal stenosis, lumbar region without neurogenic claudication; M47.26 Other spondylosis with radiculopathy, lumbar region
CPT/HCPCS: 99202; G0463

== ENCOUNTER 2022-10-28 09:33 | Day surgery (SDC) | payer MEDICARE, OTHER, SELFPAY ==
[2022-10-28 09:48] VITALS: BP 158/80; PULSE 75; RESP 18; TEMP 36.7; O2SAT 95; BMI 29.8
[2022-10-28 10:12] VITALS: BP 180/88; PULSE 74; RESP 18; O2SAT 96
[2022-10-28 10:13] VITALS: BP 180/88; PULSE 74; RESP 18; O2SAT 96
[2022-10-28 10:15] VITALS: BP 158/77; PULSE 69; RESP 18; O2SAT 95
--- NOTE | 2022-10-28 10:15 | EXP.PAIN.PRO ---
Procedure Date: 10/28/22 Time: 10:10 Anesthesiologist:: Marito Venegas CRNA Complications:: None Pre-procedure Diagnosis:: Degenerative disc disease lumbar spine multilevels. Lumbar spondylosis. Lumbar facet arthropathy. Right lumbar back pain. Post-procedure Diagnosis:: Same. Indications for Procedure:: Patient is a pleasant 77-year-old female comes our clinic today for right L4-5, L5-S1 facet block/medial branch block. She complains of low right-sided back pain. She describes the back pain as constant, dull, aching. Patient states pain increases significantly when ambulating any distance. Sitting for any length of time increases pain significantly she rates her pain 7/10. Procedure Details:: Details of the procedure explained to the patient. The patient taken the procedure room placed in the prone position on the fluoroscopy table. The area over the lumbar spine was cleaned using chlorhexidine as a cleansing solution. Using fluoroscopy guidance and a 3 and half inch 22-gauge spinal needle the right L4-5 facet joint was accessed with ease. 1 cc of 1% lidocaine and 20 mg of Depo-Medrol was injected. Right medial branch block was given using the same solution in amount. At this time the right 5 S1 facet joint was accessed with ease. 1 cc of solution containing 1% lidocaine and 20 mg of Depo-Medrol was injected. Patient tolerated procedure without difficulty. No complications. Plan and Disposition:: Patient was discharged without incident.
== END 2022-10-28 10:15 | disposition home or self-care (01) ==
PROVIDERS: PCP Nurse Practitioner Family; Visit Provider Nurse Anesthetist, Certified Registered
DX: M51.16 Intervertebral disc disorders with radiculopathy, lumbar region (principal); M47.896 Other spondylosis, lumbar region
CPT/HCPCS: 64493; 64494; J1040

== ENCOUNTER → 2022-11-03 07:47 | Outpatient (CLI) | payer MEDICARE, SELFPAY ==
--- NOTE | 2022-11-03 | MM_ITS ---
FINAL REPORT CLINICAL HISTORY: . S/P US GUIDED BX , CLIP PLACEMENT FINDINGS: MAMMOGRAM LEFT TECHNIQUE: Standard digital 2-D views COMPARISON: 10-10-22 DENSITY: There are scattered areas of fibroglandular density FINDINGS: Post biopsy marker clip is noted to be in satisfactory position located within the retroareolar left breast nodule. Postbiopsy changes are noted. IMPRESSION: Biopsy marker clip in good position RECOMMENDATION: Histopathology reveals stromal fibrosis. This is concordant with imaging findings. Recommend short-term 6 month mammographic and sonographic follow-up as part of normal post benign biopsy surveillance. Authenticated and [facility]
--- NOTE | 2022-11-03 07:58 | US_ITS ---
FINAL REPORT CLINICAL HISTORY: ABNORMAL MAMM FINDINGS: ULTRASOUND-GUIDED LEFT BREAST CORE BIOPSY TECHNIQUE: Limited images were obtained to localize region of interest. The left breast was prepped in a routine sterile fashion and locally anesthetized with 1% lidocaine. Standard written informed consent was obtained. The biopsy needle was positioned within the outer periphery of the lesion. A total of 4 passes were made with a 18 gauge core biopsy needle. A biopsy marker clip was deployed in satisfactory position. Postbiopsy mammogram showed postbiopsy changes with clip in satisfactory position. Procedure was well tolerated . CONCLUSION: 1. Technically successful ultrasound guided core biopsy of left breast lesion as above. 2. 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 Short-term sonographic follow-up left breast recommended in 6 months. Authenticated and ERN
== END ==
PROVIDERS: PCP Nurse Practitioner Family; Visit Provider Nurse Practitioner Family
DX: R92.8 Other abnormal and inconclusive findings on diagnostic imaging of breast (principal)
CPT/HCPCS: 19083; 76942; 77065; 88305

== ENCOUNTER → 2022-11-12 10:38 | Outpatient (POV) | payer MEDICARE, SELFPAY ==
[2022-11-12 11:00] VITALS: BP 133/82; PULSE 75; RESP 18; O2SAT 98; BMI 29.8
--- NOTE | 2022-11-12 11:00 | EXP.PAIN.SOA ---
[facility] Pain Management SOAP Note Subjective:: Patient is a pleasant 77-year-old female who presents today for follow-up of right medial branch block of her lumbar spine of L4-5 and L5-S1 on 10/28/2022. We are currently treating the patient for degenerative disc disease of lumbar spine with lumbar facet arthropathy, lumbar spondylosis, spinal stenosis of the lumbar spine, low back pain. Today she rates her pain a 0 out of 10. Patient states that she had at least 90 to 100% relief following this injection and feels that it is continuing to provide additional improvement. Patient states that she has not had to even take her [id number] Tylenol and ibuprofen. She states she has been able to increase her activity with less pain and feels better overall on her functionality. Patient is not on any scheduled medications. Her Michel is [phone]. Its been reviewed and appropriate. Review of Systems: General: No recent weight changes, no fever, no sleep disturbances Respiratory: No cough, no shortness of air, no recurring pulmonary infections Cardiovascular/peripheral vascular: No chest pain, no palpitations, no edema, no shortness of breath Gastrointestinal: No new onset incontinence, normal bowel movements reported Genitourinary: No new onset incontinence Musculoskeletal: Low back pain Psychiatric: [Normal mood/affect] Neurological: [Denies weakness in extremities], [denies balance issues] Objective:: Physical Exam: General: Alert and oriented x3, no acute distress, pleasant and cooperative Lungs: Respirations even and unlabored, symmetrical chest expansion Eyes: PERRL Musculoskeletal: Flexion and extension of lumbar [spine] somewhat guarded secondary to pain, [antalgic gait noted] Neurological: Speech clear, no gross sensory deficit Assessment:: Degenerative disc disease of lumbar spine with lumbar facet arthropathy, lumbar spondylosis, low back pain, spinal stenosis of the lumbar spine Plan:: Patient has had upwards of 100% relief following this injection and does not require any additional injective therapy at this time. Patient will return to clinic in 1 month for reevaluation of symptoms and plan of care. Patient has been instructed to contact the clinic with any concerns before the next appointment. Dr. Layton has reviewed this note and agrees with this plan of care. This note was dictated using voice recognition software and make contain errors or omissions. [facility] Disclaimer: The information contained in this section may have been updated after the patient was seen, as this information can be updated by other users. Medical History HTN (hypertension) Surgical History H/O knee surgery History of hip surgery Family History Other Cancer Heart attack Social History Smoking Status: Never smoker second hand exposure: No alcohol intake: never substance use type: denies use current occupational status: retired Travel in the last 8 weeks: None household members: spouse housing: house current occupational exposures/hazards: No caffeine: Yes
== END ==
PROVIDERS: PCP Nurse Practitioner Family; Visit Provider Nurse Practitioner Family
DX: M51.16 Intervertebral disc disorders with radiculopathy, lumbar region (principal); M48.061 Spinal stenosis, lumbar region without neurogenic claudication; M47.26 Other spondylosis with radiculopathy, lumbar region
CPT/HCPCS: 99212; G0463

== ENCOUNTER 2022-11-26 12:20 | Day surgery (SDC) | payer MEDICARE, SELFPAY ==
[2022-11-26 12:46] VITALS: BP 161/82; PULSE 80; RESP 18; TEMP 36.2; O2SAT 97; BMI 29.8
--- NOTE | 2022-11-26 13:17 | EXP.ANES.CKL ---
[facility] Disclaimer: The information contained in this section may have been updated after the patient was seen, as this information can be updated by other users. Medical History HTN (hypertension) Surgical History H/O knee surgery History of hip surgery Family History Other Cancer Heart attack Social History Smoking Status: Never smoker second hand exposure: No alcohol intake: never substance use type: denies use current occupational status: retired Travel in the last 8 weeks: None household members: none housing: house lives independently: Yes marital status: education level: middle school current occupational exposures/hazards: No caffeine: Yes special mirian needs: No do you feel safe at home: Yes victim of physical abuse: No victim of emotional abuse: No victim of sexual abuse: No would you like helpful sources: No [facility] Anesthesia Checklist Patient Identification Patient Identification: Arm Band and Verbal (Name & ) Structural Data Admitted From: Home Planned Operative Procedure/s: Colonoscopy Consent for Planned Operative Procedure(s) Verified: Yes NPO Status Verified Time NPO: 00:00 Additional verifications Anesthesia Reactions: No Hx Blood Transfusions: No Blood Transfusion Reaction: No Airway Assessment C-Spine Mobility Assessed: Yes TMJ Mobility Assessed: Yes Dentition: Edentulous Neurological Assessment Level of Consciousness: Awake Hx Seizures: No Numbness or tingling in extremities: No Anesthesia Plan Anesthesia Risk discussed: Yes Anesthesia Plan: Verified ASA Class: II Anesthesia Type: MAC
[2022-11-26 13:30] VITALS: O2SAT 97
--- NOTE | 2022-11-26 13:52 | HMH.SCOPE ---
Procedure: Date: 11/26/22 Patient Date of :: 1945 Procedure Performed:: Colonoscopy Indications:: Screening colonoscopy Performing Provider:: Ismael Dudley MD Referring Provider:: Krissy Zamorano APRN Sedation:: See RN records Procedure:: After placing the patient in the left lateral decubitus position, the colonoscopy was gently inserted into the rectum and under direct visualization advanced to the cecum which was identified by transillumination in the right lower quadrant, identification of the ileocecal valve, appendiceal orifice, and cecal strap. Color, texture, mucosa, and anatomy of the colon were carefully examined with the scope. Findings:: Anal canal: normal Rectum: hemorrhoids, hypertrophic papilla Sigmoid colon: diverticulosis Descending colon: normal without polyps or inflammatory changes Splenic flexure: normal Transverse colon: normal without polyps or inflammatory changes Hepatic flexure: normal Ascending colon: normal without polyps or inflammatory changes Cecum: normal Terminal ileum: not visualized Fair bowel preparation. Time was spent irrigating and cleansing mucosa Recommendations:: Higher fiber diet No further screening colonoscopy can be recommended Complications:: none Estimated blood obtained (mL): 0
[2022-11-26 13:53] VITALS: BP 117/56; PULSE 79; RESP 19; TEMP 36.3; O2SAT 94
[2022-11-26 14:03] VITALS: BP 132/86; PULSE 81; RESP 16; O2SAT 98
[2022-11-26 14:13] VITALS: BP 120/66; PULSE 80; RESP 16; O2SAT 97
[2022-11-26 14:23] VITALS: BP 144/96; PULSE 88; RESP 16; TEMP 36.6; O2SAT 99
== END 2022-11-26 14:40 | disposition home or self-care (01) ==
PROVIDERS: PCP Nurse Practitioner Family; Visit Provider Internal Medicine
PROC: 0DJD8ZZ Inspection of Lower Intestinal Tract, Via Natural or Artificial Opening Endoscopic (ICD-10-PCS; CPT 45378; principal; 2022-11-26 13:30)
DX: Z12.11 Encounter for screening for malignant neoplasm of colon (principal); K64.8 Other hemorrhoids; Z79.899 Other long term (current) drug therapy
CPT/HCPCS: G0105; J2704

== ENCOUNTER → 2023-06-25 09:14 | Outpatient (CLI) | payer MEDICARE, SELFPAY ==
--- NOTE | 2023-06-25 09:27 | XR_ITS ---
FINAL REPORT CLINICAL HISTORY: Postmenopausal osteoporosis screening COMPARISON: 09/26/2021 FINDINGS: Using 07/22, the bone mineral density of the left forearm is 0.538 g/cm2, corresponding to T-score of -2.6, consistent with osteoporosis. Previously measured 0.528 with T-score of -2.8 NOTE: T-score: Standard deviation compared with peak bone mass of young adult mean. *Following the recommendations of the International Society of Bone densitometry, classification of hip BMD is based on the lower of two T-scores; total hip or femoral neck. IMPRESSION: Diminished bone mineral density consistent with osteoporosis. Reviewed, Interpreted and Dictated by Beni Rain III, MD Transcribed by Maryanne Monte Authenticated and [facility]
== END ==
PROVIDERS: PCP Nurse Practitioner Family; Visit Provider Nurse Practitioner Family
DX: M81.0 Age-related osteoporosis without current pathological fracture (principal); N63.20 Unspecified lump in the left breast, unspecified quadrant
CPT/HCPCS: 77080

== ENCOUNTER 2024-02-04 07:25 | Outpatient (CLI) | payer MEDICARE, SELFPAY ==
--- NOTE | 2024-02-04 07:28 | MR_ITS ---
FINAL REPORT TECHNIQUE: Multiplanar and multisequence imaging of the lumbar spine was obtained without contrast. CLINICAL HISTORY: ACUTE RIGHT SIDED LOW BACK PAIN. FINDINGS: Mild lumbar scoliosis is present. Vertebral body height is preserved. The spinal cord ends at the level of L1. There is normal signal intensity within the substance of the distal spinal cord. No acute bone marrow edema or pathologic marrow replacement. No acute paraspinal abnormality is identified. L1-2: An annular bulge is present with facet osteoarthropathy and osteophytes. There is mild central canal stenosis with moderate right and severe left neural foraminal narrowing. L2-3: An annular bulge is present with facet osteoarthropathy and osteophytes. There is moderate canal stenosis with severe bilateral right greater than left neural foraminal narrowing. L3-4: An annular bulge is present with facet osteoarthropathy and osteophytes. There is moderate canal stenosis with severe right and moderate left neural foraminal narrowing. L4-5:An annular bulge is present with facet osteoarthropathy and osteophytes. There is mild canal stenosis with severe right and moderate left neural foraminal narrowing. L5-S1: An annular bulge is present with facet osteoarthropathy and osteophytes. There is moderate bilateral neural foraminal narrowing. IMPRESSION: Multilevel lumbar degenerative change and scoliosis are present. These findings are most severe at the L2-3 and L3-4 levels. Reviewed, Interpreted and Dictated by Jyoti Toledo MD Transcribed by Alycia Finley Authenticated and [facility]
== END 2024-02-04 23:59 | disposition home or self-care (01) ==
LOC: RAD 07:26
PROVIDERS: PCP Nurse Practitioner Family; Visit Provider Nurse Practitioner Family
DX: M54.50 Low back pain, unspecified (principal); R20.2 Paresthesia of skin; M54.10 Radiculopathy, site unspecified
CPT/HCPCS: 72148

== ENCOUNTER 2024-02-24 10:56 | Outpatient (POV) | payer MEDICARE, SELFPAY ==
[2024-02-24 11:05] VITALS: BP 155/78; PULSE 71; RESP 18; O2SAT 98; BMI 29.8
--- NOTE | 2024-02-24 11:12 | A.OFFVIS_ITS ---
[facility] Disclaimer: The information contained in this section may have been updated after the patient was seen, as this information can be updated by other users. Medical History HTN (hypertension) Surgical History H/O knee surgery History of hip surgery Family History Other Cancer Heart attack Social History Smoking Status: Never smoker second hand exposure: No alcohol intake: never substance use type: denies use current occupational status: retired Travel in the last 8 weeks: None household members: none housing: house lives independently: Yes marital status: education level: middle school current occupational exposures/hazards: No caffeine: Yes special mirian needs: No do you feel safe at home: Yes victim of physical abuse: No victim of emotional abuse: No victim of sexual abuse: No would you like helpful sources: No PM Subjective & Objective Subjective Subjective:: Patient is a pleasant 78-year-old female who presents today for follow-up and worsening pain. Today she rates her pain currently a 1 out of 10 however states the pain will go to a 6 out of 10 with increased activity such as prolonged s tanding, walking or sitting. Patient states the pain is all in her low back along the right side and goes into her right hip and right groin. Patient states this been going on for the last month or longer and does describe it as an aching sensation that does interfere with her ability perform activities of daily living such as cooking and cleaning. Patient states that when it is really flared up it is very painful. Patient did previously have a right medial branch block of L4 and L5, L5-S1 back in October 2022 that did provide 90 to 100% relief and states she is still getting improvement with this injection. She does state the pain feels different. Patient does use [id number] Tylenol and ibuprofen. Her Michel has been reviewed and is appropriate. Review of Systems: General: No recent weight changes, no fever, no sleep disturbances Respiratory: No cough, no shortness of air, no recurring pulmonary infections Cardiovascular/peripheral vascular: No chest pain, no palpitations, no edema, no shortness of breath Gastrointestinal: No new onset incontinence, normal bowel movements reported Genitourinary: No new onset incontinence Musculoskeletal: Low back pain, right hip pain, right groin pain Psychiatric: [Normal mood/affect] Neurological: [Denies weakness in extremities], [denies balance issues] Pain at rest (0-10 scale): 6 Objective Objective:: Physical Exam: General: Alert and oriented x3, no acute distress, pleasant and cooperative Lungs: Respirations even and unlabored, symmetrical chest expansion Eyes: PERRL Musculoskeletal: Flexion and extension of lumbar [spine] somewhat guarded secondary to pain, [antalgic gait noted] point tenderness along right SI with positive right Lizeth's, Kimberly's, Gaenslen's, compression and distraction exam Neurological: Speech clear, no gross sensory deficit Has patient had previous pain injection?: No Conservative treatment options previously tried: Home exercise plan Length of treatment: Longer than 6 weeks Meds Home Medications and Allergies Home Medications ?Medication ?Instructions ?Recorded ?Confirmed ?Type lisinopril 10 mg tablet 10 mg PO DAILY Hypertension 09/21/19 02/24/24 History New Prescriptions to Start Prescriptions: Allergies Allergy/AdvReac Type Severity Reaction Status Date / Time No Known Allergies Allergy Verified 10/30/21 11:01 Assessment and Plan *Assessment and plan (1) Sacroiliitis: Status: Acute Category: Medical Code(s): M46.1 - Sacroiliitis, not elsewhere classified Plan Patient is experiencing worsening pain in her low back and right hip with pain radiating into her right groin. Patient did have limited range of motion of her lumbar spine with point tenderness along her right SI and positive right Lizeth's, Kimberly's, Gaenslen's, compression and distraction exam. Patient was counseled that she may benefit from a right SI injection. Risk and benefits wer e discussed with patient and she would like to proceed forward with this plan of care. Patient has tried and failed oral medication, heat and ice and topicals and home exercise for longer than 6 weeks. I will order the patient a compounded cream. Patient will be scheduled for a right SI injection under fluoroscopy. Patient has been instructed to contact the clinic with any concerns before the next appointment. Dr. Layton has reviewed this note and agrees with this plan of care. This note was dictated using voice recognition software and make contain errors or omissions. All injections are used with Lidocaine or Bupivacaine and Depo Medrol.
== END 2024-02-24 23:59 | disposition home or self-care (01) ==
LOC: SC.PAIN 10:56
PROVIDERS: Visit Provider Nurse Practitioner Family
DX: M46.1 Sacroiliitis, not elsewhere classified (principal); Z73.89 Other problems related to life management difficulty
CPT/HCPCS: 99212; G0463

== ENCOUNTER 2024-10-06 12:21 | Outpatient (CLI) | payer MEDICARE, SELFPAY ==
--- NOTE | 2024-10-06 12:26 | XR_ITS ---
FINAL REPORT CLINICAL HISTORY: RT-HIP PAIN FINDINGS: Three views of the right hip demonstrate no acute fracture or dislocation. There are postoperative changes from arthroplasty. No hardware or acute bony abnormality is identified. There is a large dense calcification in the pelvis, likely due to calcified degenerated fibroid. IMPRESSION: Post arthroplasty changes without acute bony or hardware abnormality. Reviewed, Interpreted and Dictated by Vernon Vernon MD Transcribed by Arlene Escobar Authenticated and [facility]
== END 2024-10-06 23:59 | disposition home or self-care (01) ==
LOC: RAD 12:22
PROVIDERS: PCP Nurse Practitioner Family; Visit Provider Nurse Practitioner Family
DX: M25.551 Pain in right hip (principal)
CPT/HCPCS: 73502

== ENCOUNTER 2024-11-21 12:44 | Outpatient (CLI) | payer MEDICARE, SELFPAY ==
--- NOTE | 2024-11-21 13:00 | MM_ITS ---
PROCEDURE INFORMATION: Exam: MG Bilateral Screening 3D Mammography Exam date and time: 11/21/2024 1:06 PM Age: 79 years old Clinical indication: Screening examination TECHNIQUE: Imaging protocol: Bilateral Screening tomosynthesis and 2D mammography including computer-aided detection (CAD) when performed. COMPARISON: 1. MG MM CLIP PLACEMENT LT 11/03/2022 8:39 AM 2. MG MM DIG MAMM DX UNILAT LT CAD 10/10/2022 1:49 PM FINDINGS: MAMMOGRAPHY: Breast composition: There are scattered areas of fibroglandular density. Mass: None. Architectural distortion: None. Calcifications: No suspicious calcifications. Asymmetric density: None. Skin thickening: None. Axillary adenopathy: None. IMPRESSION: No mammographic evidence of malignancy. Annual screening is recommended unless otherwise clinically indicated. ASSESSMENT: BI-RADS Category 1: Negative.
--- NOTE | 2024-11-21 13:00 | XR_ITS ---
FINAL REPORT TECHNIQUE: Bone densitometry calculations of the lumbar spine and left hip were obtained. CLINICAL HISTORY: SCREENING COMPARISON: 06/25/2023 FINDINGS: Using L1-4, the bone mineral density of the spine is 1.150 g/cm2, corresponding to T-score of 0.9 and a Z score of 3.5. This is within the range of normal. Using the left forearm, the bone mineral density of the mid is 0.469 g/cm2, corresponding to a T-score of -2.5 and a Z-score of 0.3. This is within the range of osteopenia. NOTE: T-score: Standard deviation compared with peak bone mass of young adult mean. *Following the recommendations of the International Society of Bone densitometry, classification of hip BMD is based on the lower of two T-scores; total hip or femoral neck. IMPRESSION: 1. Bone mineral density of the lumbar spine within the range of normal. 2. Bone mineral density of the mid left forearm within the range of osteopenia. Reviewed, Interpreted and Dictated by Jyoti Toledo MD Transcribed by Alycia Finley Authenticated and [facility]
== END 2024-11-21 23:59 | disposition home or self-care (01) ==
LOC: RAD 12:45
PROVIDERS: PCP Nurse Practitioner Family; Visit Provider Nurse Practitioner Family
DX: M81.0 Age-related osteoporosis without current pathological fracture (principal); Z12.31 Encounter for screening mammogram for malignant neoplasm of breast
CPT/HCPCS: 77063; 77067; 77080

== ENCOUNTER 2024-12-15 12:12 | Outpatient (CLI) | payer MEDICARE, SELFPAY ==
--- NOTE | 2024-12-15 | XR_ITS ---
FINAL REPORT CLINICAL HISTORY: . FINDINGS: Insert spine CERVICAL SPINE Three views were obtained. There is no acute fracture. There is mild anterior osteophyte formation at C3-4, C4-5, C5-6, and C6-7. There is no malalignment. IMPRESSION: No acute process. Reviewed, Interpreted and Dictated by Ranjeet Prescott MD Transcribed by Arlene Escobar Authenticated and [facility]
--- NOTE | 2024-12-15 | XR_ITS ---
FINAL REPORT CLINICAL HISTORY: PAIN FINDINGS: RIGHT SHOULDER Three views were obtained. There is no fracture or dislocation. There are moderate hypertrophic changes of osteoarthritis of the glenohumeral joint. No soft tissue abnormality is identified. IMPRESSION: Degenerative changes as above. Reviewed, Interpreted and Dictated by Ranjeet Prescott MD Transcribed by Arlene Escobar Authenticated and [facility]
== END 2024-12-15 23:59 | disposition home or self-care (01) ==
LOC: RAD 12:13
PROVIDERS: PCP Nurse Practitioner Family; Visit Provider Physician Assistant
DX: M19.011 Primary osteoarthritis, right shoulder (principal); M54.2 Cervicalgia
CPT/HCPCS: 72040; 73030

== ENCOUNTER 2024-12-18 12:00 | Emergency (ER) | payer MEDICARE, SELFPAY ==
[2024-12-18 12:11] VITALS: BP 186/76; PULSE 50; RESP 16; TEMP 36.6; O2SAT 98; BMI 29.5
--- NOTE | 2024-12-18 12:16 | ED_ITS ---
Discharge Plan Disposition Patient Disposition: Home, Self-Care Condition: Good Prescriptions Prescriptions: New methocarbamol 750 mg tablet 750 mg PO Q6H PRN (Reason: muscle spasm) Qty: 20 0RF lidocaine 5 % adhesive patch,medicated 1 patch topical DAILY Qty: 30 0RF Rx Instructions: leave on most painful area for up to 12 hrs No Action lisinopril 10 MG tablet 10 mg PO DAILY Referrals Follow up/Referrals: Daisy Elizabeth DO [Staff Physician, BRAKE MACHINE OPERATOR] - See instructions Krissy Zamorano APRN [Primary Care Provider, Medical] - See instructions Activity Restrictions/Add. Instructions Additional Instructions/Restrictions: I recommend following up with your PCP if you have continued symptoms. You may need further imaging to evaluate soft tissue however we did not find a bony fracture today. I recommend continue taking Tylenol alternating with ibuprofen. I have sent in the Lidoderm patch to your pharmacy. If you feel like that the 1 we put on in the ER is helping please pick up driver that prescription if not please do not. If you have new or worsening signs or symptoms follow-up with your PCP sooner or return to the ER as needed. Additionally I have given you the name of an BRAKE MACHINE OPERATOR in case you do not have one currently. As we discussed I recommend at least a follow-up with them to discuss calcifications in her pelvis that are likely uterine fibroids but may be something else. Clinical Impressions Clinical Impression: Acute right-sided thoracic back pain, Pelvic mass in female Print Language Print Language: Palestinian Discharge ED Provider: Nessa Pate General Adult HPI <EUNICE Aceves - Last Filed: 12/18/24 14:28> General Chief complaint: Extremity Injury, Upper Stated complaint: AO 12/04 Fall Right Shoulder pain Time Seen by Provider: 12/18/24 12:16 Mode of Arrival: Ambulatory Source of Information: Patient Description of Symptoms (Recalled from ER Triage Doc. by RN): Pt states she is having right shoulder pain 12/27. Pt reports a fall approx 2 weeks ago and has been having on and off pain since. History of Present Illness HPI narrative: Patient presents for evaluation of right thoracic back pain. Patient fell 3 to 4 weeks ago in her bathroom as she was getting out of the tub. She did not fall the way to the ground but hit her right flank against the side of the tub and was able to stop herself by extending her right arm. She initially had some tenderness in the right upper back that went away. She saw her PCP recently and had a shoulder and C-spine x-ray that was done on 12/15/2024 that were jason. She was not prescribed any medication or any treatments and the pain is continued to bother her frequently. She rates it a 6 out of 10 and is refractory to Tylenol and ibuprofen. She denies any chest pain shortness of breath fever chills hemoptysis hematochezia melena nausea vomiting diarrhea numbness tingling loss of motor or sensory any focal neurologic deficits. l Related Data Home Medications ?Medication ?Instructions ?Recorded ?Confirmed lisinopril 10 mg tablet 10 mg PO DAILY Hypertension 09/21/19 02/24/24 Previous Rx's ?Medication ?Instructions ?Recorded lidocaine 5 % topical patch 1 patch topical DAILY #30 ea 12/18/24 methocarbamol 750 mg tablet 750 mg PO Q6H PRN muscle s pasm #20 12/18/24 tabs Allergies Allergy/AdvReac Type Severity Reaction Status Date / Time No Known Allergies Allergy Verified 10/30/21 11:01 [facility] <EUNICE Aceves - Last Filed: 12/18/24 14:28> [facility] Disclaimer: The information contained in this section may have been updated after the patient was seen, as this information can be updated by other users. Medical History HTN (hypertension) Surgical History H/O knee surgery History of hip surgery Family History Other Cancer Heart attack Social History Smoking Status: Never smoker second hand exposure: No alcohol intake: never substance use type: denies use current occupational status: retired Travel in the last 8 weeks?: None household members: none housing: house lives independently: Yes marital status: education level: middle school current occupational exposures/hazards: No caffeine: Yes special mirian needs: No do you feel safe at home: Yes victim of physical abuse: No victim of emotional abuse: No victim of sexual abuse: No would you like helpful sources: No Have you lived/traveled outside [place] in past 30 days?: No Contact w/someone who lives/traveled outside US past 30 days?: No Exposure to someone with infectious disease in past 14 days?: No Do you have a fever (greater than 100.4 F or 38 C)?: No Have you tested positive for COVID-19?: No Exposed to someone with COVID-19 in past 14 days?: No Do you have a sore throat?: No Do you have a cough?: No Do you have any weakness?: No Do you have any diarrhea?: No Are you experiencing any unusual bleeding?: No Do you have any muscle aches/pain?: No Do you have any abdominal pain?: No Are you experiencing loss of taste or smell?: No Other Medical History Have you received the Flu Vaccine for this season: Yes Have you received the Pneumonia Vaccine: Yes <EUNICE Aceves - Last Filed: 12/18/24 14:28> ROS Obtained: Yes Systems reviewed as appropriate & no additional complaints exc ept as documented Physical Exam <EUNICE Aceves - Last Filed: 12/18/24 14:28> General General appearance: alert Respiratory Respiratory exam: Present normal lung sounds bilaterally Cardiovascular Cardiovascular exam: Present regular rate Neurological Exam Neurological exam: Present alert and oriented X3 Medical Decision Making <EUNICE Aceves - Last Filed: 12/18/24 14:28> Medical Records Medical records reviewed: Yes I reviewed the patient's medical records. Screening: Per USPSTF and CDC recommendations, given the prevalence of disease in our region, it is our hospital?s policy to screen for HIV and viral Hepatitis for all patients aged 18 and over and those with ongoing risk factors. Michel Inquiry Pt receiving controlled substance: No Vital Signs: 12/18/24 12:11 12/18/24 13:22 12/18/24 14:18 Temperature 98 F 98.2 F Temperature Source Oral Oral Pulse Rate 54 L 56 L Pulse Rate [Left] 50 L Respiratory Rate 16 14 16 Blood Pressure 174/72 H 168/88 H Blood Pressure [Right Arm] 186/76 H Blood Pressure Mean [Right Arm] 112 Blood Pressure Source Automatic Cuff Automatic Cuff Blood Pressure Source [Right Arm] Automatic Cuff 02 Sat by Pulse Oximetry 98 98 Oxygen Delivery Method Room Air Room Air Room Air Lab Data Lab results reviewed: Yes I reviewed the patient's lab results. Orders (Tests/Meds): ED MEDICATIONS Discontinued Medications Generic Name Dose Route Start Last Admin Trade Name Lacey PRN Reason Stop Dose Admin Lidocaine 1 each 12/18/24 12:35 12/18/24 12:42 Lidocaine 5% Transdermal Patch TD 12/18/24 12:36 1 each ONCE ONE Administration ORDERS Category Date Time Status CT cervical spine wo con Stat Cat Scan 12/18/24 12:[address] chest wo con Stat Cat Scan 12/18/24 12:[address] lumbar spine wo con Stat Cat Scan 12/18/24 12:[address] thoracic spine wo con Stat Cat Scan 12/18/24 12:35 Completed Medical Decision Narrative: In summary patient is a 79-year-old female who presents to the emergency department for evaluation of right thoracic back pain. Patient is initially hypertensive with a blood pressure 186/76 but with a heart rate of 50 with sinus bradycardia in the bedside monitor breathing 16 times minute satting at 98% on r oom air upon arrival, afebrile. Physical exam is remarkable for no cervical spine tenderness some midline thoracic spine tenderness to palpation no lumbar midline tenderness and is focally tender right mid back medial to the scapular wing and lateral to the dorsal spine. There is no palpable bony deformity there is no contusions abrasions edema ecchymosis induration or swelling. Patient is neurovascularly intact distally in all 4 extremities and has full range of motion of all 4 extremities. Breath sounds clinical bilateral to the bases without adventitious sounds. Differential diagnosis includes rib fracture versus vertebral fracture versus soft tissue injury versus discogenic pain etc. Initial workup will be conducted with CT scan of the cervical thoracic lumbar spine and noncontrasted CT scan of the chest. Initial interventions include Lidoderm patch for now. Initial workup reviewed by me and by my informal interpretation of her imaging patient does have degenerative changes but no acute bony fracture or processes noted . Patient does have spinal canal stenosis in the lumbar spine. Patient also has incidentally seen calcifications in the pelvis on the lumbar imaging. Please see radiology reads for final interpretations I attempted to compare to previous images and she has no good imaging of the pelvis previously in our system.. Upon repeat evaluation patient reported feeling some better after the Lidoderm patch and we discussed the calcifications. Patient does have all of her reproductive organs and reports that she did have uterine fibroids when she was with her last child some 20+ years ago. She has not seen an BRAKE MACHINE OPERATOR in some time and has no knowledge of calcifications however she reported that she had 3 uterine fibroids. Calcification calcifications seen on the imaging today are incompletely imaged but appear to be too on the right pelvis and 1 on the left. They could be consistent with calcified uterine fibroids. Given this I have adv ised the patient to follow-up with BRAKE MACHINE OPERATOR for further evaluation or her PCP. I have given her a referral to Dr. Elizabeth should she need it. As regards to her thoracic back pain I have sent in a prescription for Lidoderm and meloxicam to her pharmacy. If she has persistent new or worsening signs or symptoms I have advised her to follow-up with her PCP as she may need further imaging as an outpatient. If she has worsening symptoms she could always return to the emergency department as needed. <Nessa Pate MD - Last Filed: 12/18/24 15:13> Vital Signs: 12/18/24 12:11 12/18/24 13:22 12/18/24 14:18 Temperature 98 F 98.2 F Temperature Source Oral Oral Pulse Rate 54 L 56 L Pulse Rate [Left] 50 L Respiratory Rate 16 14 16 Blood Pressure 174/72 H 168/88 H Blood Pressure [Right Arm] 186/76 H Blood Pressure Mean [Right Arm] 112 Blood Pressure Source Automatic Cuff Automatic Cuff Blood Pressure Source [Right Arm] Automatic Cuff 02 Sat by Pulse Oximetry 98 98 Oxygen Delivery Method Room Air Room Air Room Air Orders (Tests/Meds): ED MEDICATIONS Discontinued Medications Generic Name Dose Route Start Last Admin Trade Name Freq PRN Reason Stop Dose Admin Lidocaine 1 each 12/18/24 12:35 12/18/24 12:42 Lidocaine 5% Transdermal Patch TD 12/18/24 12:36 1 each ONCE ONE Administration ORDERS Category Date Time Status CT cervical spine wo con Stat Cat Scan 12/18/24 12:[address] chest wo con Stat Cat Scan 12/18/24 12:[address] lumbar spine wo con Stat Cat Scan 12/18/24 12:[address] thoracic spine wo con Stat Cat Scan 12/18/24 12:35 Completed Medical Decision Narrative: In summary patient is a 79-year-old female who presents to the emergency department for evaluation of right thoracic back pain. Patient is initially hypertensive with a blood pressure 186/76 but with a heart rate of 50 with sinus bradycardia in the bedside monitor breathing 16 times minute satting at 98% on room air upon arrival, afebrile. Physical exam is remarkable for no cervical spine tenderness some midline thoracic spine tenderness to palpation no lumbar midline tenderness and is focally tender right mid back medial to the scapular wing and lateral to the dorsal spine. There is no palpable bony deformity there is no contusions abrasions edema ecchymosis induration or swelling. Patient is neurovascularly intact distally in all 4 extremities and has full range of motion of all 4 extremities. Breath sounds clinical bilateral to the bases without adventitious sounds. Differential diagnosis includes rib fracture versus vertebral fracture versus soft tissue injury versus discogenic pain etc. Initial workup will be conducted with CT scan of the cervical thoracic lumbar spine and noncontrasted CT scan of the chest. Initial interventions include Lidoderm patch for now. Initial workup reviewed by me and by my informal interpretation of her imaging patient does have degenerative changes but no acute bony fracture or processes noted . Patient does have spinal canal stenosis in the lumbar spine. Patient also has incidentally seen calcifications in the pelvis on the lumbar imaging. Please see radiology reads for final interpretations I attempted to compare to previous images and she has no good imaging of the pelvis previously in our system.. Upon repeat evaluation patient reported feeling some better after the Lidoderm patch and we discussed the calcifications. Patient does have all of her reproductive organs and reports that she did have uterine fibroids when she was with her last child some 20+ years ago. She has not seen an BRAKE MACHINE OPERATOR in some time and has no knowledge of calcifications however she reported that she had 3 uterine fibroids. Calcification calcifications seen on the imaging today are incompletely imaged but appear to be too on the right pelvis and 1 on the left. They could be consistent with calcified uterine fibroids. Given this I have advised the patient to follow-up with BRAKE MACHINE OPERATOR for further evaluation or her PCP. I have given her a referral to Dr. Elizabeth should she need it. As regards to her thoracic back pain I have sent in a prescription for Lidoderm and meloxicam to her pharmacy. If she has persistent new or worsening signs or symptoms I have advised her to follow-up with her PCP as she may need further imaging as an outpatient. If she has worsening symptoms she could always return to the emergency department as needed. I was consulted by the KAUSHIK, and we discussed the complexity of problems being addressed. I approved the treatment and management plan for this patient's care in the emergency department, thus performing a substantial portion of the medical decision making. Nessa Pate MD Critical Care <EUNICE Aceves - Last Filed: 12/18/24 14:28> Critical Care Time Critical Care Time: No
--- NOTE | 2024-12-18 12:34 | CT_ITS ---
PROCEDURE INFORMATION: Exam: CT Chest Without Contrast; Diagnostic Exam date and time: 12/18/2024 12:45 PM Age: 79 years old Clinical indication: Injury or trauma; Fall; Blunt trauma (contusions or hematomas); Additional info: Fall right posterior thoracic rib pain TECHNIQUE: Imaging protocol: Diagnostic computed tomography of the chest without contrast. Radiation optimization: All CT scans at this facility use at least one of these dose optimization techniques: automated exposure control; mA and/or kV adjustment per patient size (includes targeted exams where dose is matched to clinical indication); or iterative reconstruction. COMPARISON: CR XR CHEST 2V 08/21/2021 11:03 AM FINDINGS: Lungs: No consolidation. No masses. Pleural spaces: No pneumothorax. No pleural effusion. Heart: No cardiomegaly. No pericardial effusion. TAVR. Coronary arteries: Moderate number of coronary artery calcifications. Esophagus: No wall thickening or abnormal luminal dilatation. Lymph nodes: No enlarged lymph nodes. Vasculature: No aortic aneurysm. Bones/joints: No acute fracture. No focal bone lesions. Soft tissues: No chest wall masses. IMPRESSION: No acute findings in the chest.
--- NOTE | 2024-12-18 12:35 | CT_ITS ---
PROCEDURE INFORMATION: Exam: CT Thoracic Spine Without Contrast Exam date and time: 12/18/2024 12:43 PM Age: 79 years old Clinical indication: Injury or trauma; Fall; Blunt trauma (contusions or hematomas); Additional info: Trauma, critical injury suspected TECHNIQUE: Imaging protocol: Computed tomography of the thoracic spine without contrast. Radiation optimization: All CT scans at this facility use at least one of these dose optimization techniques: automated exposure control; mA and/or kV adjustment per patient size (includes targeted exams where dose is matched to clinical indication); or iterative reconstruction. COMPARISON: CT CERVICAL SPINE WO CON 12/18/2024 12:41 PM FINDINGS: Bones/joints: No acute fracture. Normal alignment. No significant disc bulge or herniation. No severe spinal canal stenosis. No significant neural foraminal narrowing. Thyroid: Nodules largest measuring 9 mm in the left lobe of the thyroid gland. Heart: Aortic valve replacement changes. Coronary artery calcifications are noted. Soft tissues: Unremarkable. IMPRESSION: No acute findings.
--- NOTE | 2024-12-18 12:35 | CT_ITS ---
PROCEDURE INFORMATION: Exam: CT Cervical Spine Without Contrast Exam date and time: 12/18/2024 12:41 PM Age: 79 years old Clinical indication: Injury or trauma; Fall; Blunt trauma; Additional info: Trauma, critical injury suspected TECHNIQUE: Imaging protocol: Computed tomography of the cervical spine without contrast. Radiation optimization: All CT scans at this facility use at least one of these dose optimization techniques: automated exposure control; mA and/or kV adjustment per patient size (includes targeted exams where dose is matched to clinical indication); or iterative reconstruction. COMPARISON: CR XR CERVICAL SPINE 3V 12/15/2024 12:24 PM FINDINGS: Bones: No acute fracture. Normal alignment. No significant disc bulge or herniation. No severe spinal canal stenosis. No significant neural foraminal narrowing. Mild disc space narrowing at several levels. Lungs: Lung apices are normal. Soft tissues: No paraspinal or prevertebral soft tissue masses. IMPRESSION: No acute findings in the cervical spine.
--- NOTE | 2024-12-18 12:35 | CT_ITS ---
PROCEDURE INFORMATION: Exam: CT Lumbar Spine Without Contrast Exam date and time: 12/18/2024 12:47 PM Age: 79 years old Clinical indication: Injury or trauma; Fall; Blunt trauma (contusions or hematomas); Additional info: Trauma, critical injury suspected TECHNIQUE: Imaging protocol: Computed tomography of the lumbar spine without contrast. Radiation optimization: All CT scans at this facility use at least one of these dose optimization techniques: automated exposure control; mA and/or kV adjustment per patient size (includes targeted exams where dose is matched to clinical indication); or iterative reconstruction. COMPARISON: MR LUMBAR SPINE WO CON 02/04/2024 7:36 AM FINDINGS: Bones/joints: Moderate spondylosis affects lumbar spine. L1-L2: No significant disc bulge or herniation. Multilevel neural foraminal narrowing. Moderate spinal canal stenosis at L1-L2, L2-L3 L4-L5. Severe spinal canal stenosis at L3-L4 Intraperitoneal space: Evaluation of the abdominal organs is limited on this lumbar spine CT. Large calcification measuring 4.6 cm in the pelvis. Vasculature: Mild atherosclerotic calcifications affect the aorta and its branches. Soft tissues: Unremarkable. IMPRESSION: No acute findings. Moderate spondylosis affects lumbar spine. Moderate spinal canal stenosis at L1-L2, L2-L3 L4-L5. Severe spinal canal stenosis at L3-L4. Large calcification measuring 4.6 cm in the pelvis can not be characterized on this CT. CT abdomen and pelvis can be obtained if clinically indicated.
[2024-12-18] MEDS: LIDOCAINE 5% TRANSDERMAL PATCH 1 EACH TD (12:42)
[2024-12-18 13:22] VITALS: BP 174/72; PULSE 54; RESP 14; O2SAT 98
--- NOTE | 2024-12-18 14:11 | PC.NURSE ---
Kirill Saucedo PAC at bedside discussing ct and xr findings
[2024-12-18 14:18] VITALS: BP 168/88; PULSE 56; RESP 16; TEMP 36.8; O2SAT 97
== END 2024-12-18 14:22 | disposition home or self-care (01) ==
PROVIDERS: Emergency Provider Student in an Organized Health Care Education/Training Program; PCP Nurse Practitioner Family
DX: M54.6 Pain in thoracic spine (principal); M25.511 Pain in right shoulder; R19.09 Other intra-abdominal and pelvic swelling, mass and lump; W18.2XXA Fall in (into) shower or empty bathtub, initial encounter
CPT/HCPCS: 71250; 72125; 72128; 72131; 99285